=== PATIENT | female | born 1975 | race Caucasian/White ===

== ENCOUNTER 2022-07-28 14:47 | Outpatient (CLI) | payer BC, SELFPAY | END 2022-07-28 14:48 | disposition home or self-care (01) | LOC: NFLDREF 07-30 05:36 | PROVIDERS: PCP Internal Medicine; Referring Provider Internal Medicine; Visit Provider Nurse Practitioner Family | DX: R30.0 Dysuria (principal) | CPT/HCPCS: 87086 ==

== ENCOUNTER 2025-02-16 03:46 | Day surgery (SDC) | payer BC, SELFPAY ==
--- OUTSIDE RECORDS SUMMARY | 2025-01-19 09:50 | XMS_ITS | Encounter Summary ---
Author Organization [facility] Address [address] [address] Phone Care Team Providers Care Safety Attendant Name Role Phone Kobi Yung MD Primary Care Provider [phone] Reason for Visit * Reason Comments Lab Work Encounter Details Date Type Department Care Team (Late st Contact Info) Description 01/19/2025 10:50 AM CDT ALLIED HEALTH/NURSE VISIT [facility] [address] [id number] Lab, [facility] [address] Lab Work Social History Tobacco Use Types Packs/Day Years Used Date Smoking Tobacco: Never Smokeless Tobacco: Never Alcohol Use Standard Drinks/Week Comments Not Currently 0 (1 standard drink = 0.6 oz pur e alcohol) Humiliation, Afraid, Rape, and Kick questionnair e Answer Date Recorded Within the last year, have y ou been afraid of your partner or ex-partner? No 11/28/2023 Within the last year, have y ou been humiliated or emotionally abused in other ways by your partner or ex-partner? No 11/28/2023 Within the last year, have y ou been kicked, hit, slapped, or otherwise physically hurt by your partner or ex-partner? 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 Not on file Not o n file documented as of this encounter Plan of Treatment Not on file documented as of this encounter Procedures Procedure Name Priority Date/Time Associated Diagnosis Comments THYROID SCREEN WITH REFLEX Routine 01/19/2025 10:45 AM CDT Acquired hypothyroidism documented in this encounter Results * THYROID SCREEN WITH REFLEX (01/19/2025 10:45 AM CDT) Thyroid Stimulating hormone 2.42 0.47 - 4.68 mIU/L 01/19/2025 12:20 PM CDT [facility] Blood BLOOD SPECIMEN / Unknown Venipuncture / Unknown 01/19/2025 10:45 AM CDT 01/19/2025 10:45 AM CDT Narrative [facility] - 01/19/2025 12:20 PM CDT Specimens with biotin concentrations up to 2 ng/mL demonstrated a less than or equal to 10% change in results. Biotin concentrations >2 ng/mL may falsely decrease TSH results. For diagnostic purposes, the results should always be assessed in conjunction with the patient's medical history, clinical examination, and other findings. us Azalia Castro MD EC CHEMISTRY ORDERABLES ABN Rufina l Result Performing Organization Address City/State/[facility] Co de Phone Number [facility] [address] [phone] documented in this encounter Visit Diagnoses Diagnosis Acquired hypothyroidism Unspecified hypothyroidism documented in this encounter Care Teams Safety Attendant Relationship Specialty Start Date End Date Kobi Yung MD [address] [place] [address] [address] [place] [address] PCP - General editor in chief 12/03/24 documented as of this encounter
[2025-02-16] VITALS (19 sets, daily range): BP systolic 100–130; BP diastolic 58–79; PULSE 51–81; RESP 12–20; TEMP 35.8–37.2; O2SAT 84–99; BMI 31.7; BMI 31.3
--- OUTSIDE RECORDS SUMMARY | 2025-02-16 03:48 | XMS_ITS | Clinical Summary ---
Author Organization [facility] Address [address] [place] [address] Care Team Providers Care Environmental Remediation Engineer Name Role Phone Kobi Yung Primary Care Provider [phone] Allergies No known active allergies Medications Magnesium 200 mg tab Take 1 Tablet by mouth once daily. Active multivitamin (MVI) tablet Take 1 Tablet by mouth once daily. Active levothyroxine (SYNTHROID) 88 mcg tablet Take 88 mcg by mouth once daily. Active levonorgestrel-e thinyl estrad, 0.1mg-20mcg, (ALESSE-28) 0.1-20 mg-mcg tablet Take 1 Tablet by mouth once daily. 11/22/2022 Active Active Problems No known active problems Immunizations Immunization Administration Dates Next Due Tdap 07/23/2013,08/30/2011 Social History Tobacco Use Types Packs/Day Years Used Date Smoking Tobacco: Never Smokeless Tobacco: Never Alcohol Use Standard Drinks/Week Comments No 0 (1 standard drink = 0.6 oz pur e alcohol) Social Connections Answer Date Recorded Frequency of Communication with Friends and Fami ly Not on file 03/09/2023 Comments No Sex and Gender Information Value Date Recorded Sex Assigned at Not on file Legal Sex Female 7:17 AM PIECE MEAT TRIMMER Gender Identity Not on file Sexual Orientation Not on file Obstetrics History Last Filed Vital Signs Vital Sign Reading Time Taken Comments Blood Pressure 112/64 03/09/2023 11:06 AM PIECE MEAT TRIMMER Pulse 72 03/09/2023 11:06 AM PIECE MEAT TRIMMER Temperature 36.5 C (97.7 F) 05/26/2013 12:48 PM PIECE MEAT TRIMMER Respiratory Rate - - Oxygen Saturation 100% 05/26/2013 12:48 PM PIECE MEAT TRIMMER Inhaled Oxygen Concentration - - Weight 83.1 kg (183 lb 4.8 oz) 03/09/2023 11:06 AM PIECE MEAT TRIMMER Height 170.2 cm (5' 7) 03/09/2023 11:06 AM PIECE MEAT TRIMMER Body Mass Index 28.71 03/09/2023 11:06 AM PIECE MEAT TRIMMER Plan of Treatment Health Maintenance Due Date Last Done Comments Depression screening for age 12+ 1987 HIV for age 15-65 12/30/1990 Hepatitis C screening for ag e 18-79 12/30/1993 Hepatitis B series for 19+ ( 1 of 3 - 19+ 3-dose series) 12/30/1994 Pap test for age 21-65 12/30/1996 Colonoscopy through age 75 12/30/2020 Lipids for age 45-75 12/30/2020 Mammogram for age 45-75 12/30/2020 Tetanus booster 07/24/2023 07/23/2013, 08/30/2011 BMI (ht and wt on same day) for age 18+ 03/09/2024 03/09/2023, 12/24/2015 Influenza Vaccine (#1) 2024 RSV vaccine for adults or (1 - 1-dose 75+ series) 12/30/2050 Pneumococcal series for age 6-49 Aged Out No longer eligible b ased on patient's age to complete this topic Insurance [facility] Care Teams Environmental Remediation Engineer Relationship Specialty Start Date End Date Kobi Yung [address] [place] [id number] PCP - General Obstetrics and Gynecology 05/26/13
--- OUTSIDE RECORDS SUMMARY | 2025-02-16 03:48 | XMS_ITS | Encounter Summary ---
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
--- OUTSIDE RECORDS SUMMARY | 2025-02-16 03:48 | XMS_ITS | Clinical Summary ---
Author Organization [employer] Address [address] [place] [address] Care Team Providers Care Manager Business Planning Name Role Phone Provider, No Primary Primary Care Provider Unava ilable Provider, No Primary Unavailable Unavailable Allergies No known active allergies Medications omeprazole (AKA: PRILOSEC) 10 mg oral Capsule, Delayed Release(E.C.) Take 10 mg by mouth once daily. Active pnv with Ca,No.72-Iron-FA (AKA; ) 27-1 mg oral Tablet Take 1 Tab by mouth. Active traMADol (AKA: ULTRAM) 50 mg oral TabletIndications :Herpes zoster without complication Take 1 tablet (50 mg total) by mouth every 6 hours as needed for severe pain. 20 tablet 02/16/2017 Active Active Problems Problem Noted Date Diagnosed Date Vaginal bleeding in 08/28/2013 Social History Tobacco Use Types Packs/Day Years Used Date Smoking Tobacco: Never Smokeless Tobacco: Never Alcohol Use Standard Drinks/Week Comments No 0 (1 standard drink = 0.6 oz pur e alcohol) Comments No Sex and Gender Information Value Date Recorded Sex Assigned at Not on file Legal Sex Female 2:16 AM WAXER TENDER Gender Identity Not on file Sexual Orientation Not on file Last Filed Vital Signs Vital Sign Reading Time Taken Comments Blood Pressure 147/83 02/16/2017 6:49 PM CDT Pulse 55 02/16/2017 6:49 PM CDT Temperature 36.6 C (97.9 F) 02/16/2017 6:49 PM CDT Respiratory Rate 18 02/16/2017 6:49 PM CDT Oxygen Saturation 99% 02/16/2017 6:49 PM CDT Inhaled Oxygen Concentration - - Weight 71.1 kg (156 lb 11.2 oz) 02/16/2017 6:49 PM CDT Height 170.2 cm (5' 7) 02/16/2017 6:49 PM CDT Body Mass Index 24.54 02/16/2017 6:49 PM CDT Plan of Treatment Not on file Insurance [facility] [employer] [place] [id number] Advance Directives * Full Code (Latest Code Status on File) Date Activated Date Inactivated Comments 08/28/2013 6:09 AM 08/29/2013 10:09 PM Care Teams Manager Business Planning Relationship Specialty Start Date End Date Provider, No Primary . [place] BIG[place] [id number] PCP - General 08/27/13 Provider, No Primary . [place] BIG[place] [id number] 05/14/17 Additional Source Comments PLEASE NOTE: Replies to this message will not be received.[facility]
--- OUTSIDE RECORDS SUMMARY | 2025-02-16 03:48 | XMS_ITS | Encounter Summary ---
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 90 Tablet 3 02/02/2025 documented in this encounter Plan of Treatment Not on file documented as of this encounter Visit Diagnoses Diagnosis Acquired hypothyroidism- Primary Unspecified hypothyroidism documented in this encounter Care Teams Director Of It Operations Relationship Specialty Start Date End Date Kobi Yung MD [address] [facility] [address] [place] [address] PCP - General credit charge authorizer 12/03/24 documented as of this encounter
--- OUTSIDE RECORDS SUMMARY | 2025-02-16 03:48 | XMS_ITS | Clinical Summary ---
Author Organization [facility] Address [address] [address] Phone Care Team Providers Care Volunteer Fire Fighter Name Role Phone Kobi Yung MD Primary Care Provider [phone] Allergies No known active allergies Medications Magnesium 200 MG Tablet Take 1 Tablet by mouth one time a day. Active Multiple Vitamin (Multi Vitamin Daily) Tablet Take 1 Tablet by mouth one time a day. Active Bisacodyl (LAXATIVE OR) Take by mouth. Active levonorgestrel-ethi nyl estradiol (Vienva) 0.1-20 MG-MCG oral tabletIndications:S urveillance for control, oral contraceptives Take 1 Tablet by mouth one time a day. 90 Tablet 3 5 Active levothyroxine (Synthroid) 100 MCG tablet Take 1 Tablet by mouth one time a day. 60 Tablet 5 Active levothyroxine (Synthroid) 100 MCG tabletIndications:A cquired hypothyroidism Take 1 Tablet by mouth one time a day. 90 Tablet 3 5 Active Encounters Date Type Department Care Team Description 01/19/2025 10:50 AM CDT ALLIED HEALTH/NURSE VISIT [facility] [address] [place] [address] Lab, [facility] Lab Work 01/19/2025 Results Follow-Up [facility] [address] [place], [place] [address] Azalia Castro MD THYROID SCREEN WITH REFLEX 01/19/2025 Travel 12/08/2024 Results Follow-Up [facility] [place] [address] [facility] [address] [place] [address] Kobi Yung MD HEMOGLOBIN A1C, LIPID PANEL, THYROID SCREEN WITH REFLEX, T4, FREE 12/03/2024 2:15 PM CDT Ancillary Procedure [facility] [address] [facility] [address] [place] [address] Kobi Yung MD Encounter for screening mammogram for malignant neoplasm of breast 12/03/2024 1:00 PM CDT Office Visit [facility] [address] [facility] [address] [address] [place] [address] Kobi Yung MD Preventative health care (Primary Dx); Lipid screening; Diabetes mellitus screening; Acquired hypothyroidism; Surveillance for control, oral contraceptives 12/02/2024 Travel from Last 3 Months Immunizations Immunization Administration Dates Next Due COVID-19 mRNA Vaccine (Moderna - 18+ Yrs) 2020,07/21/2020,06/23/2020 Tdap (7 years and older) 11/28/2023,07/23/2013,0 08/30/2011 Surgical History Surgery Date Site/Laterality Comments COLONOSCOPY 02/14/2014 - 03/15/2014 DILATION AND CURETTAGE OF UTERUS Date Of Procedure: 02/26/12, 07/27, Note: 7 wk SAB/DRM 07/22/12- 13 week LASIK HYSTEROSCOPY 04/16/2012 Date Of Procedure: 2012, Note: AUB/retained POC after SAB - DRM WISDOM TOOTH EXTRACTION 04/16/1997 Date Of Procedure: 1997 COLONOSCOPY 09/19/2022 N/A tubular adenoma-repeat 5 yrs Surgeon: Brown Coughlin MD; Location: [facility] ENDOSCOPY Medical History Medical History Date Comments Shingles Note: on face Da te Onset: 03/02 , missed Note: 02/25- 7 wk SAB; 07/2012- week - [id number], c/w partial molar . F/U HCG x3 pending Date Onset: 02/25, 07/2012 History of pneumonia 09/12/2019 Hypothyroidism 09/11/2019 RLS (restless legs syndrome) 05/16/2017 Tubular adenoma of colon 09/2022 repeat 5 yrs Family History Medical History Relation Comments Musculo-skeletal Disease Father RV [employer]s cripts TW - Problem: Family history of fibromyalgia Prostate Cancer Father RV [employer] TW Lung Cancer Maternal Grandfather RV [place] - Comment: Assoc with tobacco Cancer Other 1 RV Josephine - Re lation: Aunt, Problem: Skin Cancer, Comment: non-melanoma Diabetes Other 2 RV Josephine - Re lation: Uncle, Problem: DM Type II Cancer Other 3 RV [place] - Re lation: Aunt, Problem: Thyroid Gland Neoplasm, Malignant, Comment: Pt with multiple tiny thyroid nodules on U/S 2003, subsequent normal thyroid U/S in 2011 Cancer Other 4 RV [employer] TW - Relation: Aunt, Problem: Family history of malignant neoplasm of thyroid Thyroid Disease Other 5 RV [employer] TW - Relation: Aunt Colon Cancer Paternal Grandfather RV [place] Diabetes Paternal Grandfather RV [employer]sc[employer] ts TW Cancer Paternal Grandmother RV Josephine - Problem: Pancreatic Neoplasm, Malignant Diabetes Paternal Grandmother RV [place] - Problem: DM Type II Cancer Sister 1 RV Josephine - Pr oblem: Thyroid Gland Neoplasm, Malignant, Comment: Pt with multiple tiny thyroid nodules on U/S 2003, subsequent normal thyroid U/S in 2011 Cancer Sister 2 RV [employer] TW - Problem: Family history of malignant neoplasm of thyroid Rheumatoid Arthritis Sister 3 RV [employer]sc[employer] ts TW Relation Status Comments Father Maternal Grandfather Other 1 Other 2 Other 3 Other 4 Other 5 Paternal Grandfather Paternal Grandmother Sister 1 Sister 2 Sister 3 Social History Tobacco Use Types Packs/Day Years [...] 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 2012 [facility] Jhon Miranda MD Delivery Location:[facility] 2013 Term 37w 0d 3430 g (7 lb 9 oz) F LV/ VAG Epidur al Livin g Lillia na Jhon Miranda MD Delivery Location:[facility] Last Filed Vital Signs Vital Sign Reading Time Taken Comments Blood Pressure 114/70 12/03/2024 12:48 PM CDT Pulse 46 09/19/2022 11:20 AM CDT Temperature - - Respiratory Rate 12 09/19/2022 11:20 AM CDT Oxygen Saturation 100% 09/19/2022 11:20 AM CDT Inhaled Oxygen Concentration - - Weight 89.9 kg (198 lb 3.2 oz) 12/03/2024 12:48 PM CDT Height 169.4 cm (5' 6.7) 12/03/2024 12:48 PM CD T Body Mass Index 31.32 12/03/2024 12:48 PM CDT Plan of Treatment Health Maintenance Due Date Last Done Comments CT Colonography 1975 Cologuard 1975 FIT/FOBT 1975 Last pap w/ HPV Testing 1975 Sigmoidoscopy 1975 Hepatitis B Vaccine (Standing Order) (1 of 3 - 19+ 3-dose series) 12/30/1994 COVID-19 Vaccine ( season) 2024 03/24/2021, 07/21/2020, 06/23/2020 Influenza Vaccine Seasonal (Standing Order) (#1) 2024 Cervical Cancer Screening 11/23/2025 Last pap w/o HPV Testing 11/23/2025 11/23/2022 MAMMO,SCREEN 12/03/2025 12/03/2024, 11/14, 11/22/2022, Additional history exists COLONOSCOPY Q 5 YRS 09/20/2027 09/19/2022 Colonoscopy 09/19/2032 09/19/2022 Colorectal Cancer Screening 09/19/2032 TETANUS (Standing Order) 11/27/2033 024, 07/23/2013, 08/30/2011 PERTUSSIS (Standing Order) Completed 11/27, 07/23/2013, 08/30/2011 HPV Vaccine (Standing Order) Aged Out No longer eligible based on patient's age to complete this topic Pneumococcal/PCV20 Vaccine: Pediatrics (2-5 yrs) and At-Risk Patients (6-49 yrs) (Standing Order) Aged Out No longer eligible based on patient's age to complete this topic Procedures Procedure Name Priority Date/Time Associated Diagnosis Comments THYROID SCREEN WITH REFLEX Routine 01/19/2025 10:45 AM CDT Acquired hypothyroidism MAMM VICTORIA SCREEN DIGITAL BILAT Routine 12/03/2024 2:19 PM CDT Encounter for screening mammogram for malignant neoplasm of breast T4, FREE Routine 12/03/2024 1:54 PM CDT Acquired hypothyroidism THYROID SCREEN WITH REFLEX Routine 12/03/2024 1:54 PM CDT Acquired hypothyroidism LIPID PROFILE Routine 12/03/2024 1:54 PM CDT Lipid screening HEMOGLOBIN A1C Routine 12/03/2024 1:54 PM CDT Diabetes mellitus screening from Last 3 Months Results * THYROID SCREEN WITH REFLEX (01/19/2025 10:45 AM CDT) Thyroid Stimulating hormone 2.42 0.47 - 4.68 mIU/L 01/19/2025 12:20 PM CDT [facility] Blood BLOOD SPECIMEN / Unknown Venipuncture / Unknown 01/19/2025 10:45 AM CDT 01/19/2025 10:45 AM CDT Narrative [facility] - 01/19/2025 12:20 PM CDT Specimens [...] ABN Rufina l Result Performing Organization Address City/State/[facility] Co de Phone Number [address] [phone] * MAMM VICTORIA SCREEN DIGITAL BILAT (12/03/2024 2:19 PM CDT) Anatomical Region Laterality Modality Breast Bilateral Mammography 12/03/2024 2:09 PM CDT Narrative 12/03/2024 2:49 PM CDT PROCEDURE: MAMM VICTORIA SCREEN DIGITAL BILAT. HISTORY: Breast cancer screening. TECHNIQUE: Full-field digital mammography of the bilateral breasts was performed in conventional CC and MLO views utilizing tomosynthesis. COMPARISON: 11/28/2023, 11/22/2022. FINDINGS: The breasts are heterogeneously dense, which may obscure small masses. Right breast: No suspicious abnormality. Left breast: No suspicious abnormality. IMPRESSION: No mammographic evidence of breast malignancy. The patient will be notified of the results. Recommendation: Normal Interval Follow-up BI-RADS 1: Negative. Electronically signed by Devan Little MD Report Date: 12/03/2024 2:49 PM Procedure Note Devan Little MD - 12/03/2024 PROCEDURE: MAMM VICTORIA SCREEN DIGITAL BILAT. HISTORY: Breast cancer screening. TECHNIQUE: Full-field digital mammography of the bilateral breasts wasperformed in conventional CC and MLO views utilizing tomosynthesis. COMPARISON: 11/28/2023, 11/22/2022. FINDINGS: The breasts are heterogeneously dense, which may obscure small masses. Right breast: No suspicious abnormality. Left breast: No suspicious abnormality. IMPRESSION: No mammographic evidence of breast malignancy. The patient will be notified of the results. Recommendation: Normal Interval Follow-up BI-RADS 1: Negative. Electronically signed by Devan Little MD Report Date: 12/03/2024 2:49 PM Kobi Yung MD EC MAMMOGRAPHY ORDERABLES Fi nal Result * T4, FREE (12/03/2024 1:54 PM CDT) T4, Free 1.28 0.78 - 2.19 ng/dL 12/03/2024 10:47 PM CDT [facility] Blood BLOOD SPECIMEN / Unknown Venipuncture / Unknown 12/03/2024 1:54 PM CDT 12/03/2024 5:27 PM CDT Kobi Yung MD EC CHEMISTRY ORDERABLES ABN Final Result [facility] [address] [place] [address] * HEMOGLOBIN A1C (12/03/2024 1:54 PM CDT) Hemoglobin A1C 5.0 4.8 - 5.6 % 12/03/2024 5:11 PM CDT [facility] Blood BLOOD SPECIMEN / Unknown Venipuncture / Unknown 12/03/2024 1:54 PM CDT 12/03/2024 1:54 PM CDT Narrative [facility] - 12/03/2024 5:11 PM CDT 5.7-6.4%: Increased risk for diabetes 6.5% or higher: Diagnostic for diabetes For diabetic patients, A1C goals should be discussed with clinician. Kobi Yung MD EC CHEMISTRY ORDERABLES ABN Final Result Performing Organization Address [facility] de Phone Number [facility] [address] [place] [address] * (ABNORMAL) THYROID SCREEN WITH REFLEX (12/03/2024 1:54 PM CDT) Thyroid Stimulating hormone 4.97(H) 0.47 - 4.68 mIU/L 12/03/2024 5:27 PM CDT [facility] Blood BLOOD SPECIMEN / Unknown Venipuncture / Unknown 12/03/2024 1:54 PM CDT 12/03/2024 1:54 PM CDT [facility] - 12/03/2024 5:27 PM CDT Specimens with biotin concentrations up to 2 ng/mL demonstrated a less than or equal to 10% change in results. Biotin concentrations >2 ng/mL may falsely decrease TSH results. For diagnostic purposes, the results should always be assessed in conjunction with the patient's medical history, clinical examination, and other findings. Kobi Yung MD EC CHEMISTRY ORDERABLES ABN Final Result Performing Organization Address [facility] Phone Number [facility] [address] [place] [address] * (ABNORMAL) LIPID PANEL (12/03/2024 1:54 PM CDT) Cholesterol 195 100 - 200 mg/dL 12/03/2024 5:26 PM CDT [facility] Triglycerides 148 <150 mg/dL 12/03/2024 5:26 PM CDT [facility] HDL Cholesterol, Measured 48 45 - 60 mg/dL 12/03/2024 5:26 PM CDT [facility] Non-HDL Cholesterol 147(H) <130 mg/dL 12/03/2024 5:26 PM CDT [facility] LDL Cholesterol, Calculated 117 <130 mg/dL 12/03/2024 5:26 PM CDT [facility] Blood BLOOD SPECIMEN / Unknown Venipuncture / Unknown 12/03/2024 1:54 PM CDT 12/03/2024 1:54 PM CDT Narrative [facility] - 12/03/2024 5:26 PM CDT Cholesterol Reference Ranges (Adults >20 years) Desirable: <200 mg/dL Borderline High: 200-239 mg/dL High Risk: >240 mg/dL Cholesterol Reference Ranges (Children <20 years) Desirable: <169 mg/dL Borderline High: 170-199 md/dL High Risk: >200 mg/dL Triglyceride Reference Ranges Desirable: <150 mg/dL Borderline High: 150-199 mg/dL High Risk: >200 mg/dL NON-HDL Reference Ranges Desirable: < 130 mg/dL Near Desirable: 130-159 mg/dL Borderline High: 160-189 mg/dL High Risk: 190-219 mg/dL Very high Risk: >/=220 mg/dL Kobi Yung MD EC CHEMISTRY ORDERABLES ABN Final Result [facility] [address] [place] [address], [facility] [phone] from Last 3 Months Insurance [facility] Commercial Address: [address] [address] [place] [address] Advance Directives For more information, please contact: [phone] * Full Code (Latest Code Status on File) Date Activated Date Inactivated Comments 09/19/2022 10:14 AM 09/19/2022 3:54 PM Care Teams Volunteer Fire Fighter Relationship Specialty Start Date End Date Kobi Yung MD [address] [facility] [address] [place] [address] PCP - General field service supervisor 12/03/24
--- OUTSIDE RECORDS SUMMARY | 2025-02-16 03:48 | XMS_ITS | Encounter Summary ---
Author Organization [facility] Address [address] [address] Phone Care Team Providers Care Slag Mixer Name Role Phone Choice, No Pcp-Patient Primary Care Provider Drea vailable Kobi Yung MD Primary Care Provider [phone] Reason for Visit * Reason Comments Refill Request Encounter Details Date Type Department Care Team (Late st Contact Info) Description 02/21/2022 Refill [facility]CTAPHONE OPERATOR [address] [place], [place] [address] Kobi Yung MD [facility] [address] [place] [address] Refill Request Social History Tobacco Use Types Packs/Day Years Used Date Smoking Tobacco: Never Smokeless Tobacco: Never Alcohol Use Standard Drinks/Week Comments Never 0 (1 standard drink = 0.6 oz pur e alcohol) PHQ-2 Answer Date Recorded PHQ-2 Total 0 09/28/2021 Comments Unknown Sex and Gender Information Value Date Recorded Sex Assigned at Not on file Legal Sex Female 12:44 PM CDT Gender Identity Not on file Sexual Orientation Not on file documented as of this encounter Plan of Treatment Not on file documented as of this encounter Visit Diagnoses Not on filedocumented in this encounter Care Teams Slag Mixer Relationship Specialty Start Date End Date Choice, No Pcp-Patient PCP - General 09/19/22 11/27/23 Kobi Yung MD [address] [place] [address] [address] [address] PCP - General adobe developer 12/03/24 documented as of this encounter
--- NOTE | 2025-02-16 04:03 | ED_ITS ---
HPI - General Adult General Chief complaint: Back Injury/Pain Stated complaint: abdominal and back pain Time Seen by Provider: 02/16/25 04:03 History of Present Illness HPI narrative: 2330 pt reports cramping to abd that radiates to back, Right side, and shortness of breath due to pain. Pain does not radiate to arm or shoulder. Peak amount of pain, 8/10. Last BM was around 0300. Pt reports normal urination. Upon arrival, systems have improved. Reports pain has reduced, easier to breath. No reports of any traumatic events. 49-year-old woman presenting to the emergency department with concern of upper abdominal pain that abruptly started during the night about 4 hours ago. Really intense and radiating as she gestures from epigastrium to around the right side. Just took her breath away. Thinking it was gas did have a bowel movement this morning without change. As she was coming to the emergency department, pain did finally begin to settle and now is relatively comfortable. No fever. Denies history of dyspepsia or GERD. No particular food intolerances. No family history of gallbladder disease Related Data Home Medications ?Medication ?Instructions ?Recorded ?Confirmed levonorgestrel-ethinyl estradiol 1 tab PO DAILY 04/21/24 0.1 mg-20 mcg tablet (Vienva) levothyroxine 88 mcg capsule 88 mcg PO QDAY 04/21/24 0 04/21/24 Allergies Allergy/AdvReac Type Severity Reaction Status Date / Time No Known Drug Allergies Allergy Verified 02/21/24 07:08 Review of Systems Status of ROS: Reports: 6 or more systems reviewed and unremarkable except as noted in History and below [facility] Medical History Pharyngitis ?J02.9 - Acute pharyngitis, unspecified (ICD-10) Acute maxillary sinusitis ?J01.00 - Acute maxillary sinusitis, unspecified (ICD-10) Dysuria ?R30.0 - Dysuria (ICD-10) Social History Smoking Status: Never smoker How often do you have a drink containing alcohol: never AUDIT-C Alcohol total score: 0 Non-prescribed substance use: denies use Exam Narrative: Exam Narrative: Pleasant. NAD. Breathing easily. Initially seated on the bed. Lungs appear clear. Heart in regular rate and rhythm. Abdomen is soft minimally uncomfortable in the epigastrium. No flank pain. Extremities are well perfused without edema. Const: Vital Signs, click to edit/add: Vital Signs - 24 hr 02/16/25 03:49 02/16/25 05:25 Temperature 96.5 F L Pulse Rate 80 Pulse Rate [Left P ulse Oximeter] 67 Respiratory Rate 20 16 Blood Pressure 126/79 Blood Pressure [Ri ght Upper Arm] 130/78 Pulse Oximetry 99 98 Oxygen Delivery Me thod Room Air Room Air Documenting provider has reviewed patient's vital signs: yes Course Vital Signs Vital signs: Initial Vital Signs Temperature 96.5 F L 02/16/25 03:49 Temperature Source Temporal Artery Scan 02/16/25 03:49 Pulse Rate 67 02/16/25 03:49 Pulse Rhythm Regular 02/16/25 03:49 Respiratory Rate 20 02/16/25 03:49 Blood Pressure 130/78 02/16/25 03:49 Blood Pressure Mean 95 02/16/25 03:49 Blood Pressure Position Sitting 02/16/25 03:49 Pulse Oximetry 99 02/16/25 03:49 Oxygen Delivery Method Room Air 02/16/25 03:49 Vital Signs Temperature 96.5 F L 02/16/25 03:49 Pulse Rate 67 02/16/25 03:49 Respiratory Rate 20 02/16/25 03:49 Blood Pressure 130/78 02/16/25 03:49 Pulse Oximetry 99 02/16/25 03:49 Oxygen Delivery Method Room Air 02/16/25 03:49 Temperature 96.5 F L 02/16/25 03:49 Pulse Rate 80 02/16/25 05:25 Respiratory Rate 16 02/16/25 05:25 Blood Pressure 126/79 02/16/25 05:25 Pulse Oximetry 98 02/16/25 05:25 Oxygen Delivery Method Room Air 02/16/25 05:25 Medical Decision Making MDM Narrative Medical decision making narrative: This appears to be at a minimum biliary colic. Possible cardiac etiology but doubtful. Unlikely vascular dissection. Not pleuritic at this time. Will check standard labs. Does not appear to need any intervention otherwise. 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 Labs are reassuring Slept a little here in the emergency department. Has remained comfortable. Ultrasound by tech report looks to show mobile cholelithiasis an edematous gallbladder wall with dilated common bile duct. Looks like cholecystitis. Pending Radiology over-read. I discussed these findings with Jhoana. Re-examination is with nontender abdomen. Will need to discuss with General surgery. Radiology over-read below Final Report: INDICATION: Abdominal pain TECHNIQUE: Ultrasound abdomen limited. Sonographic images of the right upper quadrant were obtained using gutierrez-scale and color Doppler images. COMPARISON: None. FINDINGS: Liver: Normal in size and echotexture. No suspicious masses. No intrahepatic biliary dilatation. Gallbladder: Cholelithiasis and tumefactive sludge. Mildly thickened gallbladder wall measuring 0.5 centimeters.. Common bile duct: 8 mm. Pancreas: The uncinate process is slightly more hypoechoic humidity compared to the remainder of the pancreas. The pancreatic tail is not included in field of view. Right kidney: Normal in size. Normal echotexture and cortex. No suspicious masses, stones, or hydronephrosis. Vasculature: Proximal abdominal aorta and IVC are unremarkable. IMPRESSION: Cholelithiasis and mildly thickened gallbladder wall is concerning for acute cholecystitis. Mildly prominent common bile duct without visualized biliary ductal stones. If LFTs are abnormal, consider further evaluation with MRCP. Hypoechoic uncinate process without evidence of pancreatic ductal dilation is indeterminate. If an MRCP is done, considering ordering with MR pancreas protocol to better evaluate this region. Otherwise, nonemergent MR pancreas protocol can be considered. Dictated by Lynn Garnett MD @ 02/16/2025 7:52:35 AM I would anticipate surgery at some point for Jhoana. Would like to to discuss this case with General surgery Anticipating handoff a change of shift. Medical Records Medical records reviewed: Yes I reviewed the patient's medical records Lab Data Lab results reviewed: Yes I reviewed the patient's lab results Labs: Lab Results 02/16/25 02/16/25 02/16/25 Range/Units 04:03 04:09 04:21 WBC 6.99 (4.50-11.00) K/uL RBC 4.53 (4.00-5.20) m/uL Hgb 13.1 (12.0-16.0) gm/dL Hct 39.5 (33.0-51.0) % MCV 87 (80-100) fL MCH 29 (26-34) pg MCHC 33 (32-36) gm/dL RDW Coeff of Lucinda 12.6 (11.5-15.5) % Plt Count 230 (140-440) K/uL Neut % (Auto) 66.6 (42.0-72.0) % Lymph % (Auto) 27.0 (20-44) % [place] % (Auto) 4.9 (0.0-11.0) % Eos % (Auto) 1.4 (0.0-7.0) % Baso % (Auto) 0.1 (0.0-3.0) % Neut # (Auto) 4.65 (1.7-7.0) K/uL Lymph # (Auto) 1.89 (0.90-2.90) K/uL [place] # (Auto) 0.30 (0.00-0.90) K/UL Eos # (Auto) 0.10 (0.00-0.50) K/uL Baso # (Auto) 0.01 (0.00-0.30) K/uL Abs Immat Gran (auto) 0.00 (0.00-0.30) K/uL Imm/Tot Granulo (auto) 0.0 % Sodium 138 (135-149) mmol/L Potassium 4.0 (3.6-5.1) mmol/L Chloride 106 (96-114) mmol/L Carbon Dioxide 28 (20-32) mmol/L Anion Gap 4 L (7-15) mEq/L BUN 14 (5-24) mg/dL Creatinine 0.8 (0.5-1.5) mg/dL Estimated Creat Clear 82.72 Estimated GFR 90 ml/min Glucose 114 (60-115) mg/dL Calcium 8.3 L (8.4-10.6) mg/dL Total Bilirubin 0.3 (0.1-1.5) mg/dL Direct Bilirubin 0.3 (0.0-0.5) mg/dL AST 25 (12-35) U/L ALT 20 (4-35) U/L Alkaline Phosphatase 51 (40-150) U/L Troponin I < 0.01 (0.01-0.04) ng/mL C-Reactive Protein < 0.5 L (0.5-1.0) mg/dL Total Protein 6.9 (6.0-8.3) g/dL Albumin 3.8 (3.3-5.0) g/dL Urine Color Yellow (Yellow) Urine Appearance Clear (Clear) Urine pH 6.5 (5.0-8.5) Ur Specific [place] 1.025 (1.000-1.030) Urine Protein Negative (Negative) Urine Glucose (UA) Negative (Negative) Urine Ketones Negative (Negative) Urine Blood 2+ A (Negative) Urine Nitrite Negative (Negative) Urine Bilirubin Negative (Negative) Urine Urobilinogen 0.2 (0.2-1.0) Ur Leukocyte Esterase Negative (Negative) Urine RBC 2-5 A (0-2) Urine WBC 0-2 (0-5) Ur Squamous Epith Cells None (None-Few) Urine Bacteria None (None) POC Troponin I 0.00 L (0.01-0.04) ng/ml Discharge Plan Discharge Clinical Impression: Biliary colic, Cystitis, Cholelithiasis Prescriptions: No Action levonorgestrel-ethinyl estrad [Vienva] 0.1-20 mg-mcg tablet 1 tab PO DAILY levothyroxine 88 mcg capsule 88 mcg PO QDAY Follow Up/Referrals: Nena Chung MD [Primary Care Provider, Internal Medicine]
[2025-02-16 04:06] LABS: Appearance Urine Clear (Clear)
[2025-02-16 04:30] LABS: Troponin, Point-of-Care* 0.00 ng/ml (0.01-0.04)
[2025-02-16 04:58] LABS: Albumin* 3.8 g/dL (3.3-5.0); Chloride* 106 mmol/L (96-114); Potassium* 4.0 mmol/L (3.6-5.1); Sodium* 138 mmol/L (135-149)
[2025-02-16 04:59] LABS: Hematocrit* 39.5 % (33.0-51.0); Hemoglobin* 13.1 gm/dL (12.0-16.0); Immature Granulocytes Abs Auto 0.00 K/uL (0.00-0.30); Immature Granulocytes Pct Auto 0.0 %; Lymphocytes Absolute Auto 1.89 K/uL (0.90-2.90); Mean Corpuscular HGB Conc 33 gm/dL (32-36); Mean Corpuscular Hemoglobin 29 pg (26-34); Mean Corpuscular Volume 87 fL (80-100); RDW Coefficient of Variation % 12.6 % (11.5-15.5); Red Blood Count* 4.53 m/uL (4.00-5.20); Slide Review Reflex No; White Blood Count* 6.99 K/uL (4.50-11.00)
[2025-02-16 05:01] LABS: Alanine Aminotransferase* 20 U/L (4-35); Alkaline Phosphatase* 51 U/L (40-150); Anion Gap 4 mEq/L (7-15); Aspartate Amino Transferase* 25 U/L (12-35); Bilirubin Direct* 0.3 mg/dL (0.0-0.5); Bilirubin Total* 0.3 mg/dL (0.1-1.5); Blood Urea Nitrogen* 14 mg/dL (5-24); Carbon Dioxide* 28 mmol/L (20-32); Creatinine* 0.8 mg/dL (0.5-1.5); Est. Creatinine Clearance* 82.72; Estimated Glomerular Filt Rate 90 ml/min; Total Protein* 6.9 g/dL (6.0-8.3)
[2025-02-16 05:02] LABS: Calcium* 8.3 mg/dL (8.4-10.6); Glucose* 114 mg/dL (60-115)
--- NOTE | 2025-02-16 05:45 | CRLHL7_ITS ---
For Patients: As a result of the Century Cures Act, medical imaging exams and procedure reports are released immediately into your electronic medical record. You may view this report before your referring provider. If you have questions, please contact your health care provider. INDICATION: Abdominal pain TECHNIQUE: Ultrasound abdomen limited. Sonographic images of the right upper quadrant were obtained using gutierrez-scale and color Doppler images. COMPARISON: None. FINDINGS: Liver: Normal in size and echotexture. No suspicious masses. No intrahepatic biliary dilatation. Gallbladder: Cholelithiasis and tumefactive sludge. Mildly thickened gallbladder wall measuring 0.5 centimeters.. Common bile duct: 8 mm. Pancreas: The uncinate process is slightly more hypoechoic humidity compared to the remainder of the pancreas. The pancreatic tail is not included in field of view. Right kidney: Normal in size. Normal echotexture and cortex. No suspicious masses, stones, or hydronephrosis. Vasculature: Proximal abdominal aorta and IVC are unremarkable. IMPRESSION: Cholelithiasis and mildly thickened gallbladder wall is concerning for acute cholecystitis. Mildly prominent common bile duct without visualized biliary ductal stones. If LFTs are abnormal, consider further evaluation with MRCP. Hypoechoic uncinate process without evidence of pancreatic ductal dilation is indeterminate. If an MRCP is done, considering ordering with MR pancreas protocol to better evaluate this region. Otherwise, nonemergent MR pancreas protocol can be considered. Dictated by Lynn Garnett MD @ 02/16/2025 7:52:35 AM (Electronically Signed)
--- NOTE | 2025-02-16 09:01 | P.GSCN_ITS ---
History of Present Illness Consult details Date Seen: 02/16/25 Consult date: 02/16/25 Narrative: The patient is a 49-year-old female who presented to the emergency department last evening with severe abdominal pain. Stated that around 11:30 p.m. she was awoke in with diffuse abdominal pain. She states that it felt like her abdomen was tight and she felt bloated. The pain moved to her right upper quadrant as well as her back and the pain felt like contractions. She did have nausea and vomited once. She thought maybe she was constipated and tried laxatives, Gas-X and Tums. She was able to have a small bowel movement with straining. No diarrhea. She has not had anything like this before but states for the past few weeks if she 8 high fat meal she would feel full more easily. By the time she came to the emergency department the pain had mostly gone away except she was feeling some tightness in her abdomen. [facility] Medical History (Updated 02/16/25 @ 11:55 by Erika Raymond MD) Hypothyroidism ?E03.9 - Hypothyroidism, unspecified (ICD-10) Pharyngitis ?J02.9 - Acute pharyngitis, unspecified (ICD-10) Acute maxillary sinusitis ?J01.00 - Acute maxillary sinusitis, unspecified (ICD-10) Dysuria ?R30.0 - Dysuria (ICD-10) Social History (Updated 02/16/25 @ 09:42 by Erika Raymond MD) Narrative: She does not smoke. She drinks alcohol rarely. She works as an airport operations specialist. Smoking Status: Never smoker How often do you have a drink containing alcohol: monthly or less How many standard drinks containing alcohol do you have on a typical day: 1 or 2 How often do you have six or more drinks on one occasion: Never AUDIT-C Alcohol total score: 1 Non-prescribed substance use: denies use Caffeine: Yes Are you using contraception or practicing any form of control: No Meds Home Medications and Allergies Home Medications ?Medication ?Instructions ?Recorded ?Confirmed ?Type levonorgestrel-ethinyl estradiol 1 tab PO DAILY 02/16/25 History 0.1 mg-20 mcg tablet (Vienva) levothyroxine 88 mcg capsule 88 mcg PO QDAY 04/21/24 1 04/18/24 History Allergies Allergy/AdvReac Type Severity Reaction Status Date / Time No Known Drug Allergies Allergy Verified 02/16/25 11:02 Exam Narrative: Exam Narrative: General appearance: Alert, cooperative, and in no distress Eyes: PERRLA, eye lids clear, and sclera white HENT Head: Normocephalic Ears: External ears normal Pulmonary: Clear to auscultation bilaterally Cardiovascular Heart: Regular rate and rhythm Extremities: warm and well perfused Gastrointestinal Abdominal: No scars. SHe is tender in the right upper quadrant with a positive Calhoun sign Musculoskeletal: Extremities: Upper: Both upper extremities have normal joint range of motion and intact strength. Lower: Both lower extremities have normal joint range of motion and intact strength. Skin: Normal skin color, texture, and turgor. Neurologic: No focal deficits Psychiatric: Alert, oriented, cooperative, normal affect. Const: Vital Signs, click to edit/add: Vital Signs - 24 hr 02/16/25 03:49 02/16/25 05:25 02/16/25 08:47 Temperature 96.5 F L Pulse Rate 80 Pulse Rate [Left P ulse Oximeter] 67 63 Respiratory Rate 20 16 16 Blood Pressure 126/79 Blood Pressure [Ri ght Upper Arm] 130/78 119/71 Pulse Oximetry 99 98 97 Oxygen Delivery Me thod Room Air Room Air Room Air Results Labs Labs: Abnormal lab results 02/16/25 02/16/25 02/16/25 Range/Units 04:03 04:09 04:21 Anion Gap 4 L (7-15) mEq/L Calcium 8.3 L (8.4-10.6) mg/dL C-Reactive Protein < 0.5 L (0.5-1.0) mg/dL Urine Blood 2+ A (Negative) Urine RBC 2-5 A (0-2) POC Troponin I 0.00 L (0.01-0.04) ng/ml Diabetes panel 02/16/25 Range/Units 04:21 Sodium 138 (135-149) mmol/L Potassium 4.0 (3.6-5.1) mmol/L Chloride 106 (96-114) mmol/L Carbon Dioxide 28 (20-32) mmol/L BUN 14 (5-24) mg/dL Creatinine 0.8 (0.5-1.5) mg/dL Glucose 114 (60-115) mg/dL Calcium 8.3 L (8.4-10.6) mg/dL AST 25 (12-35) U/L ALT 20 (4-35) U/L Alkaline Phosphatase 51 (40-150) U/L Total Protein 6.9 (6.0-8.3) g/dL Albumin 3.8 (3.3-5.0) g/dL Calcium panel 02/16/25 Range/Units 04:21 Calcium 8.3 L (8.4-10.6) mg/dL Albumin 3.8 (3.3-5.0) g/dL Pituitary panel 02/16/25 Range/Units 04:21 Sodium 138 (135-149) mmol/L Potassium 4.0 (3.6-5.1) mmol/L Chloride 106 (96-114) mmol/L Carbon Dioxide 28 (20-32) mmol/L BUN 14 (5-24) mg/dL Creatinine 0.8 (0.5-1.5) mg/dL Glucose 114 (60-115) mg/dL Calcium 8.3 L (8.4-10.6) mg/dL Adrenal panel 02/16/25 Range/Units 04:21 Sodium 138 (135-149) mmol/L Potassium 4.0 (3.6-5.1) mmol/L Chloride 106 (96-114) mmol/L Carbon Dioxide 28 (20-32) mmol/L BUN 14 (5-24) mg/dL Creatinine 0.8 (0.5-1.5) mg/dL Glucose 114 (60-115) mg/dL Calcium 8.3 L (8.4-10.6) mg/dL Total Bilirubin 0.3 (0.1-1.5) mg/dL AST 25 (12-35) U/L ALT 20 (4-35) U/L Alkaline Phosphatase 51 (40-150) U/L Total Protein 6.9 (6.0-8.3) g/dL Albumin 3.8 (3.3-5.0) g/dL All other labs normal. Imaging Abdominal ultrasound report/results: report reviewed and image reviewed Additional studies: INDICATION: Abdominal pain TECHNIQUE: Ultrasound abdomen limited. Sonographic images of the right upper quadrant were obtained using gutierrez-scale and color Doppler images. COMPARISON: None. FINDINGS: Liver: Normal in size and echotexture. No suspicious masses. No intrahepatic biliary dilatation. Gallbladder: Cholelithiasis and tumefactive sludge. Mildly thickened gallbladder wall measuring 0.5 centimeters.. Common bile duct: 8 mm. Pancreas: The uncinate process is slightly more hypoechoic humidity compared to the remainder of the pancreas. The pancreatic tail is not included in field of view. Right kidney: Normal in size. Normal echotexture and cortex. No suspicious masses, stones, or hydronephrosis. Vasculature: Proximal abdominal aorta and IVC are unremarkable. IMPRESSION: Cholelithiasis and mildly thickened gallbladder wall is concerning for acute cholecystitis. Mildly prominent common bile duct without visualized biliary ductal stones. If LFTs are abnormal, consider further evaluation with MRCP. Hypoechoic uncinate process without evidence of pancreatic ductal dilation is indeterminate. If an MRCP is done, considering ordering with MR pancreas protocol to better evaluate this region. Otherwise, nonemergent MR pancreas protocol can be considered. Dictated by Lynn Garnett MD @ 02/16/2025 7:52:35 AM Progress Note:A&P Assessment and plan (1) Cystitis: Status: Acute (2) Common bile duct dilatation: Status: Acute (3) Cholelithiasis: Status: Acute Plan The patient is a 49-year-old female with acute cholecystitis. She is feeling better, however she does still have tenderness on exam and evidence of gallbladder wall thickening on imaging, therefore I did recommend we proceed with cholecystectomy today but I did give her the option of taking a watchful waiting approach. She has normal LFTs but does have a bile duct which is larger than I would expect for her age. Therefore we discussed that if it is technically feasible I would perform a cholangiogram. If there is significant inflammation or of the cholangiogram is difficult then I would plan on just following her clinically with plans for MRCP for any abnormal labs. We discussed risks, benefits and recovery of the procedure. She is in agreement to proceed we will plan on surgery today at 1st OR availability.
[2025-02-16 10:31] LABS: Ur HCG Qualitative* Negative (Negative)
[2025-02-16] MEDS: LACTATED RINGERS 1000 ML 1,000 ML 100 ML IV (11:03)
[2025-02-16] MEDS: SODIUM CHLORIDE 0.9 % (FLUSH) 10 ML SYRINGE IVF (11:04)
--- NOTE | 2025-02-16 11:30 | CRLHL7_ITS ---
For Patients: As a result of the Century Cures Act, medical imaging exams and procedure reports are released immediately into your electronic medical record. You may view this report before your referring provider. If you have questions, please contact your health care provider. INDICATION : Laparoscopic cholecystectomy. TECHNIQUE : Intraoperative cholangiogram. Contrast injected via gallbladder neck and cystic duct. FINDINGS : Fluoroscopy time was 27.3 seconds. Two images were obtained. IMPRESSION : Normal caliber intra and extrahepatic ducts. No filling defects. Contrast seen within the duodenum. Normal intraoperative cholangiogram. Dictated by Eduardo Graham MD @ 02/16/2025 2:46:42 PM (Electronically Signed)
[2025-02-16] MEDS: PIPERACILLIN/TAZOBACTAM 3.375 GM INJ IVPB (12:22)
[2025-02-16] MEDS: 0.9% SODIUM CHL 50 ML VIAL INJECTION (13:00)
[2025-02-16] MEDS: BUPIVACAINE 0.25% 30 ML INJECTION (13:20)
--- NOTE | 2025-02-16 13:28 | PM.GSPRC ---
Operative Note Date of procedure: 02/16/25 Pre-op diagnosis: 1. Acute cholecystitis 2. Common bile duct dilatation Post-op diagnosis: Same Type of Procedure: 1. Laparoscopic cholecystectomy 2. Intraoperative cholangiogram Indications: The patient is a 49-year-old female who presents to the emergency department with severe abdominal right upper quadrant pain radiating to her back. Workup revealed gallstones with common bile duct dilatation and gallbladder wall thickening. Liver tests and lipase were normal, however I recommended that we perform an intraoperative cholangiogram at the time of cholecystectomy given her biliary dilatation. After discussion of risks and benefits she agreed to proceed. Procedure Description: After discussing the risks and benefits of the procedure, the patient signed informed consent.? The operative site was marked and the patient was brought to the operating room and placed on the operating table in supine position.? Care was taken to pad the patient's pressure points.?? The patient was then intubated by anesthesia.?? The operative site was then prepped and draped in the usual sterile fashion.? A time-out was then performed. Entrance to the abdomen was gained via a 5 mm Visiport in the left upper quadrant. The abdomen was insufflated and briefly surveyed for signs of injury. There was none. A 10 mm umbilical port was placed as well as 2 working ports along the right costal margin, all under direct vision. The patient was then placed in reverse Trendelenburg position with the right side up. The gallbladder fundus was grasped and retracted cephalad. The gallbladder was distended and the tissue around the gallbladder neck was edematous. The infundibulum was grasped. A combination of hook cautery and blunt dissection was used to carefully dissect out the cystic duct and artery until they could clearly be seen entering the gallbladder without any intervening structures. The gallbladder was dissected off the cystic plate to achieve the critical view. Once this was achieved the cystic artery was clipped with 2 clips proximal and 1 clip distal. I then placed a clip across the gallbladder neck and then created a ductotomy in the cystic duct with a scissor. Through this I advanced a cholangiocatheter. A saline leak test was performed. There was no leak. The patient was laid flat in fluoroscopy was brought into the field. Contrast was then injected through cholangiocatheter. There was brisk filling of the common bile duct, right and left hepatic ducts as well as duodenum. There was no noted filling defect at the distal common bile duct. The patient was placed back in reverse Trendelenburg with the right side up and the cholangiocatheter was removed. The cystic duct was then clipped with 2 clips distally and transected. The gallbladder was then taken off of the liver bed and removed from the abdomen using an Endo-Catch bag. The gallbladder bed was surveyed for hemostasis which appeared adequate. A small amount of bile which had spilled was suctioned from the abdomen. The ports were removed and the abdomen desufflated. The umbilical port fascia was closed with 0 Vicryl. The skin was closed with absorbable subcuticular suture. Sterile dressings were applied. Instrument sponge and needle counts were correct at the end of the case. The patient was then woken and transferred to the PACU in stable condition. The patient tolerated the procedure well. Findings: 1. Edematous gallbladder with gallstones. 2. Normal intraoperative cholangiogram Anesthesia: GETA Surgeon: Erika Raymond MD Estimated blood loss (mL): 5 Specimen: Gallbladder Condition: stable Disposition: PACU
--- NOTE | 2025-02-16 13:46 | W.ANESCHARGE ---
Anesthesia Charges Start Date/Time Anesthesia Start Date: 02/16/25 Anesthesia Start Time: 12:13 Stop Date/Time Anesthesia Stop Date: 02/16/25 Anesthesia Stop Time: 13:39
--- NOTE | 2025-02-16 13:53 | P.ANES_ITS ---
Anesthesia Charges Start Date/Time Anesthesia Start Date: 02/16/25 Anesthesia Start Time: 12:13 Stop Date/Time Anesthesia Stop Date: 02/16/25 Anesthesia Stop Time: 13:39 Summary Emergency: ENTER[employer]ISE [employer]UTIONS ARCHITECT Coding CPT Codes CPT Codes: ANESTH SURG UPPER ABDOMEN - 26933 ([id number]) P1 - NORMAL HEALTHY PATIENT, QK - FARM MANAGEMENT ADVISER 2-4 CNCRNT ANES PROC, QX - ENTER[employer]ISE SOL[employer]IONS ARCHITECT SVC W/ MD MED DIRECTION Additional Codes: Summary - Emergency: [employer] ARCHITECT ([id number])
--- NOTE | 2025-02-16 13:53 | W.ANESCHARGE ---
Anesthesia Charges Start Date/Time Anesthesia Start Date: 02/16/25 Anesthesia Start Time: 12:13 Stop Date/Time Anesthesia Stop Date: 02/16/25 Anesthesia Stop Time: 13:39 Summary Emergency: DENTURE PACKER Coding CPT Codes CPT Codes: ANESTH SURG UPPER ABDOMEN - 72692 ([id number]) P1 - NORMAL HEALTHY PATIENT, QK - STRIPPER LATEX 2-4 CNCRNT ANES PROC, QX - DENTURE PACKER SVC W/ MD MED DIRECTION Additional Codes: Summary - Emergency: DENTURE PACKER ([id number])
[2025-02-16] MEDS: TRAMADOL HCL 50 MG TABLET PO (14:45)
--- NOTE | 2025-02-16 14:58 | P.ANES_ITS ---
Anesthesia Charges Start Date/Time Anesthesia Start Date: 02/16/25 Anesthesia Start Time: 12:13 Stop Date/Time Anesthesia Stop Date: 02/16/25 Anesthesia Stop Time: 13:39 Summary Emergency: GERARDO Coding CPT Codes CPT Codes: ANESTH SURG UPPER ABDOMEN - 09018 ([id number]) P1 - NORMAL HEALTHY PATIENT, QK - PHARMACEUTICAL DEVELOPMENT TECHNICIAN 2-4 CNCRNT ANES PROC, QX - FILM WAXER SVC W/ MD MED DIRECTION Additional Codes: Summary - Emergency: GERARDO ([id number])
--- NOTE | 2025-02-16 14:58 | W.ANESCHARGE ---
Anesthesia Charges Start Date/Time Anesthesia Start Date: 02/16/25 Anesthesia Start Time: 12:13 Stop Date/Time Anesthesia Stop Date: 02/16/25 Anesthesia Stop Time: 13:39 Summary Emergency: GERARDO Coding CPT Codes CPT Codes: ANESTH SURG UPPER ABDOMEN - 80783 ([id number]) P1 - NORMAL HEALTHY PATIENT, QK - MIGRATORY GAME BIRD BIOLOGIST 2-4 CNCRNT ANES PROC, QX - DOOR TO DOOR FUNDRAISING COLLECTOR SVC W/ MD MED DIRECTION Additional Codes: Summary - Emergency: GERARDO ([id number])
[2025-02-16] MEDS: LACTATED RINGERS 500 ML 500 ML 100 ML IV (16:00)
[2025-02-16] MEDS: ONDANSETRON 2 MG/ML inj 4 MG IVP (16:13)
== END 2025-02-16 16:25 | disposition home or self-care (01) ==
LOC: ED 09:18 → OR 10:18
PROVIDERS: Anesthesiology; Family Medicine; Emergency Provider Family Medicine; PCP Internal Medicine; Visit Provider Surgery
PROC: 0FT44ZZ Resection of Gallbladder, Percutaneous Endoscopic Approach (ICD-10-PCS; CPT 47563; principal; 2025-02-16 11:30)
DX: K80.00 Calculus of gallbladder with acute cholecystitis without obstruction (principal); K83.8 Other specified diseases of biliary tract; R06.02 Shortness of breath; R10.84 Generalized abdominal pain
CPT/HCPCS: 47563; 00790; 36415; 74300; 76000; 76705; 80048; 80076; 81001; 81025; 83690; 84484; 85025; 86140; 99140; 99284; 99285; A9270; J0665; J1100; J1171; J1885; J2250; J2405; J2543; J2704; J2710; J3010; J3490; J7120; Q9967